=== PATIENT | male | born 1990 | race Caucasian/White ===

== ENCOUNTER 2024-11-04 08:17 | Emergency (ER) | payer OTHER, SELFPAY ==
[2024-11-04 08:49] VITALS: BP 109/76; PULSE 125; RESP 18; TEMP 36.6; O2SAT 95; BMI 19.1
--- NOTE | 2024-11-04 08:55 | ED.GENADULT ---
HPI - General Adult General Date Seen: 11/04/24 Chief complaint: Skin/Abscess/Foreign Body Stated complaint: swelling right knee, nausea Time Seen by Provider: 11/04/24 08:55 History of Present Illness HPI narrative: 34-year-old male presents to the ER today with an open sore and swelling on his right knee. He is generally healthy. No history of diabetes or immunosuppression. He does not have any known history of MRSA infections. He is here because he has a red swollen area on the medial aspect of his right knee/medial distal thigh. He noticed a small open sore, in that area. He does have a few other sores including 1 on his right lateral thigh and a couple on his chin. These do come and go from time to time but never get very inflamed. However beginning about 36 hours ago it began to be uncomfortable. He 1st noted this comfort when he was in bed and his girlfriend accidentally bumped against the side of his knee. Since then he has noted increasing discomfort in spreading redness. He is not having any fever or chills. No trouble bending or straightening his knee. He is not having any swelling in the knee joint itself but swelling on the medial side of the knee. No other red areas. Related Data Home Medications ?Medication ?Instructions ?Recorded ?Confirmed No Known Home Medications 11/04/24 11/04/24 Allergies Allergy/AdvReac Type Severity Reaction Status Date / Time codeine Allergy Severe Anaphylaxis Verified 11/04/24 08:48 Penicillins AdvReac Severe Anaphylaxis Verified 11/04/24 08:48 [facility] Social History Smoking Status: Current every day smoker What tobacco products do you use: cigarettes Do you use any of these nicotine containing products: None Second hand tobacco smoke exposure: Yes How often do you have a drink containing alcohol: 4 or more times a week How many standard drinks containing alcohol do you have on a typical day: 5 or 6 How often do you have six or more drinks on one occasion: Weekly AUDIT-C Alcohol total score: 9 Non-prescribed substance use: denies use Exam Narrative: Exam Narrative: Constitutional: Appears well-developed and well-nourished. Alert. Conversant. Non toxic. HENT: Head: Atraumatic. Nose: Nose normal. Mouth/Throat: Oral mucosa is clear and moist. no trismus Eyes: Conjunctivae normal. EOM normal. Pupils equal, round, and reactive to light. No scleral icterus. Neck: Normal range of motion. Neck supple. No tracheal deviation present. Cardiovascular: Normal rate, regular rhythm. No gallop. No friction rub. No murmur heard. Symmetric radial artery pulses Pulmonary/Chest: Effort normal. No stridor. No respiratory distress. No wheezes. No rales. No rhonchi . No tenderness. Musculoskeletal: RUE: Normal range of motion. No tenderness. No deformity LUE: Normal range of motion. No tenderness. No deformity RLE: Normal range of motion. No edema. No tenderness. No deformity LLE: Normal range of motion. No edema. No tenderness. No deformity Lymph: No ascending lymphangitis adenopathy. Neurological: Alert and oriented to person, place, and time. Normal strength. CN II-VII intact. No sensory deficit. GCS eye subscore is 4. GCS verbal subscore is 5. GCS motor subscore is 6. Normal coordination Skin: There are a couple of scabbed lesions on the patient's right thigh. One is lateral and 1 is medial. Surrounding the medial scapular lesion there is a irregularly shaped area of erythema that is probably about 12 x 6 cm in size. The erythema is warm. It is slightly indurated and firm. There is no palpable fluctuance. No crepitus or gas in the soft tissue. There is not any palpable joint effusion. Normal range of motion in the knee joint. No other reddened skin lesions. Skin is warm and dry. No rash noted. No pallor. Normal capillary refill. Psychiatric: Normal mood. Very polite but anxious and worried. He is concerned that he might have a black spider bite. Const: Vital Signs, click to edit/add: Vital Signs - 24 hr 11/04/24 08:49 Temperature 97.9 F Pulse Rate [Pulse Oximeter] 125 H Respiratory Rate 18 Blood Pressure [Ri ght Upper Arm] 109/76 Pulse Oximetry 95 Oxygen Delivery Me thod Room Air Course Vital Signs Vital signs: Initial Vital Signs Temperature 97.9 F 11/04/24 08:49 Temperature Source Temporal Artery Scan 11/04/24 08:49 Pulse Rate 125 H 11/04/24 08:49 Respiratory Rate 18 11/04/24 08:49 Blood Pressure 109/76 11/04/24 08:49 Blood Pressure Mean 87 11/04/24 08:49 Pulse Oximetry 95 11/04/24 08:49 Oxygen Delivery Method Room Air 11/04/24 08:49 Vital Signs Temperature 97.9 F 11/04/24 08:49 Pulse Rate 125 H 11/04/24 08:49 Respiratory Rate 18 11/04/24 08:49 Blood Pressure 109/76 11/04/24 08:49 Pulse Oximetry 95 11/04/24 08:49 Oxygen Delivery Method Room Air 11/04/24 08:49 Temperature 97.9 F 11/04/24 08:49 Pulse Rate 125 H 11/04/24 08:49 Respiratory Rate 18 11/04/24 08:49 Blood Pressure 109/76 11/04/24 08:49 Pulse Oximetry 95 11/04/24 08:49 Oxygen Delivery Method Room Air 11/04/24 08:49 Medical Decision Making MDM Narrative Medical decision making narrative: This patient presents for evaluation of skin redness and warmth with this comfort affecting the skin of his right medial knee/distal 5. The history, physical exam is consistent with cellulitis. There do not appear at this time to be any complication of cellulitis including abscess, necrotizing fascitis, lymphangitis, lymphadenitis, osteomyelitis, sepsis, or shock. Although his triage she complained noted knee swelling, the swelling is not actually his knee but rather the skin on the medial aspect of his knee. At this point there is no evidence for any prepatellar bursitis, septic arthritis, gouty arthritis in the knee. I do not think he needs any x-rays, arthrocentesis or further evaluation unless the nickel circumstances change. The patient is not immunosuppressed or diabetic. Supportive outpatient management is indicated with antibiotics. Difficult to discriminate between typical skin kisha causing cellulitis or MRSA. Given that he does have other scabs skin lesions, I suspect he may be colonized with MRSA. Will double cover with cephalexin and Bactrim. The patient is instructed to follow-up with primary care physician to ensure no progression and rapid resolution and given precautions to return if high fever, spread greater than 2-3 cm outside of the marked area, worsening pain, vomiting or any other worsening. Questions answered and return precautions reviewed. Discharge Plan Discharge Clinical Impression: Cellulitis Patient Disposition: Home, Self-Care Condition: Stable Instructions: Cellulitis (ED) Additional Instructions: As we discussed, we suspect that the red swollen area on the skin of your right medial knee and thigh is a skin infection. I suspect that this is probably caused by the bacteria MRSA, but we cannot tell that for sure. We are going to put you on 2 antibiotics. One of them, call Bactrim will cover for MRSA. The other 1, called cephalexin, will cover for other skin bacteria. Please monitor the red area carefully. It may continue to get bigger for the next 12-24 hours but should not get dramatically bigger (more than injure to increase in size). If the red area does have significant increase in size, or if you have worsening pain, high fever, worsening swelling, please return to the ER right away to be rechecked. If the red area is not dramatically improved within 72 hours, please come back to the ER (or see your doctor) for a recheck. It is okay to use Tylenol or ibuprofen if needed for pain. Try to rest. Light activity in walking is okay, but avoid strenuous running, or activities like crawling around on your hands or knees. Even if he get better, please recheck with your regular doctor within 1-2 weeks. Prescriptions: No Action No Known Home Medications Stand Alone Forms: Work/School Release, [facility] Info Instructions
== END 2024-11-04 09:49 | disposition home or self-care (01) ==
PROVIDERS: Emergency Provider Emergency Medicine
DX: L03.115 Cellulitis of right lower limb (principal)
CPT/HCPCS: 99282; 99283

== ENCOUNTER 2025-01-28 07:48 | Emergency (ER) | payer OTHER, SELFPAY ==
[2025-01-28 07:51] VITALS: BP 126/62; PULSE 107; RESP 22; TEMP 36.7; O2SAT 98; BMI 20.1
--- NOTE | 2025-01-28 08:16 | ED.GENADULT ---
HPI - General Adult General Date Seen: 01/28/25 Chief complaint: Fall/Minor Trauma Stated complaint: slipped/fell - injured back and head Time Seen by Provider: 01/28/25 08:03 History of Present Illness HPI narrative: Patient is a 34-year-old male here with his girlfriend after a fall at work this morning. He slipped on icy pavement and fell backward, striking his head and injuring his low back. He notes pain with any movement in his low back both in the midline and on both sides. He did not have loss of consciousness. He has a sore spot where he hit his head but otherwise does not have a headache. Denies neck pain. Mostly is concerned with his low back. No radiating pain or weakness or numbness. Past medical history reviewed he denies any medical problems although he does smoke cigarettes and drinks daily. Denies other substances. Related Data Home Medications ?Medication ?Instructions ?Recorded ?Confirmed No Known Home Medications 11/04/24 11/04/24 Allergies Allergy/AdvReac Type Severity Reaction Status Date / Time codeine Allergy Severe Anaphylaxis Verified 11/04/24 08:48 Penicillins AdvReac Severe Anaphylaxis Verified 11/04/24 08:48 Review of Systems Status of ROS: Reports: 6 or more systems reviewed and unremarkable except as noted in History and below [facility] Social History Smoking Status: Current every day smoker What tobacco products do you use: cigarettes Do you use any of these nicotine containing products: None Second hand tobacco smoke exposure: Yes How often do you have a drink containing alcohol: 4 or more times a week How many standard drinks containing alcohol do you have on a typical day: 5 or 6 How often do you have six or more drinks on one occasion: Weekly AUDIT-C Alcohol total score: 9 Non-prescribed substance use: denies use Exam Narrative: Exam Narrative: Vital signs reviewed In general, an alert, nontoxic young man. Smells strongly of cigarette smoke. Head: Normocephalic, atraumatic. No hematoma or abrasion noted. Eyes: Sclera clear. Pupils equal and reactive. ENT: Mucous membranes moist. Neck: Supple without adenopathy. Nontender to palpation. Heart: Regular rate and rhythm without murmur. Lungs: Clear. No increased work of breathing, crackles or wheezes. Back: Diffuse lumbar tenderness including in the midline, no visible trauma. Neurologic: Alert, conversant. Speech fluent, face symmetric. Moves all extremities equally. Skin: Warm, dry well perfused. Affect: Normal. Const: Vital Signs, click to edit/add: Vital Signs - 24 hr 01/28/25 07:51 Temperature 98.1 F Pulse Rate [Pulse Oximeter] 107 H Respiratory Rate 22 Blood Pressure [Ri ght Upper Arm] 126/62 Pulse Oximetry 98 Oxygen Delivery Me thod Room Air Course Course ED Course: Patient presents after fall on the ice from a standing position. He is not anticoagulated. Minor head injury without concerning findings, no indication for imaging. With regard to his back, he complains of midline pain and tenderness, will obtain x-rays to rule out fracture, otherwise symptoms likely muscular in nature. Toradol given here. X-rays of the lumbar spine are reviewed by myself, negative for fracture or other acute appearing abnormality. Read as negative by Radiology. Will discharge home with a note for work to be off for couple of days, Toradol, cyclobenzaprine, ice and/or heat. Primary care follow-up if not improving over the next 7-10 days. Diagnosis: Closed head injury. Low back pain. Fall. Vital Signs Vital signs: Initial Vital Signs Temperature 98.1 F 01/28/25 07:51 Temperature Source Temporal Artery Scan 01/28/25 07:51 Pulse Rate 107 H 01/28/25 07:51 Respiratory Rate 22 01/28/25 07:51 Blood Pressure 126/62 01/28/25 07:51 Blood Pressure Mean 83 01/28/25 07:51 Blood Pressure Position Sitting 01/28/25 07:51 Pulse Oximetry 98 01/28/25 07:51 Oxygen Delivery Method Room Air 01/28/25 07:51 Vital Signs Temperature 98.1 F 01/28/25 07:51 Pulse Rate 107 H 01/28/25 07:51 Respiratory Rate 22 01/28/25 07:51 Blood Pressure 126/62 01/28/25 07:51 Pulse Oximetry 98 01/28/25 07:51 Oxygen Delivery Method Room Air 01/28/25 07:51 Temperature 98.1 F 01/28/25 07:51 Pulse Rate 107 H 01/28/25 07:51 Respiratory Rate 22 01/28/25 07:51 Blood Pressure 126/62 01/28/25 07:51 Pulse Oximetry 98 01/28/25 07:51 Oxygen Delivery Method Room Air 01/28/25 07:51 Medications Administered Medications: Discontinued Medications Generic Name Dose Route Start Last Admin Trade Name Sandy PRN Reason Stop Dose Admin Ketorolac Tromethamine 30 mg 01/28/25 08:14 01/28/25 08:27 Ketorolac 30 Mg/Ml Inj IM 01/28/25 08:15 Not Given ONCE ONE Ketorolac Tromethamine 10 mg 01/28/25 08:24 01/28/25 08:35 Ketorolac 10 Mg Tablet PO 01/28/25 08:25 10 mg ONCE ONE Administration Medical Decision Making Imaging Data Lumbar x-ray: Attestation: I have reviewed the pertinent imaging results. Radiologist's impression: Patient: Adelfo Velasquez MR#: [id number] : 1990 Acct:[id number] Loc: ED Service Date: 01/28/[address]: Ordering Physician: Lizeth Ramsey M.D. Date of Service: 01/28/25 Procedure(s): XR lumbar spine 2-3V Accession Number(s): [id number] cc: Lizeth Ramsey M.D.; Provider,Not a Local~ For Patients: As a result of the Cures Act, medical imaging exams and procedure reports are released immediately into your electronic medical record. You may view this report before your referring provider. If you have questions, please contact your health care provider. INDICATION: Fall. Back pain. Slipped. TECHNIQUE: Lumbar spine three views. COMPARISON: None. FINDINGS: No acute fracture or malalignment. No other osseous abnormality. Paraspinal soft tissues as imaged are unremarkable. IMPRESSION: No acute osseous abnormality. Dictated by Gene Solomon MD @ 01/28/2025 9:12:05 AM Discharge Plan Discharge Clinical Impression: Low back pain Patient Disposition: Home, Self-Care Condition: Stable Instructions: Acute Low Back Pain (ED) Additional Instructions: Your x-rays today appear normal, there is no evidence of injury to the bones. Your pain is likely related to muscle spasm, and may feel worse tomorrow than it does today. It should gradually improve over the next week or so. If not, see your primary doctor. You can use ice and/or heat as needed. I prescribed 2 medications, Toradol, which is an anti-inflammatory, and cyclobenzaprine which is a muscle relaxer. Use as needed. Do not combine with alcohol. Prescriptions: No Action No Known Home Medications Follow Up/Referrals: Provider,Not a Local [Primary Care Provider, Family Practice] Stand Alone Forms: [place] [employer] Info Instructions
[2025-01-28] MEDS: KETOROLAC 10 MG TABLET PO (08:35)
--- NOTE | 2025-01-28 08:45 | CRLHL7_ITS ---
For Patients: As a result of the Cures Act, medical imaging exams and procedure reports are released immediately into your electronic medical record. You may view this report before your referring provider. If you have questions, please contact your health care provider. INDICATION: Fall. Back pain. Slipped. TECHNIQUE: Lumbar spine three views. COMPARISON: None. FINDINGS: No acute fracture or malalignment. No other osseous abnormality. Paraspinal soft tissues as imaged are unremarkable. IMPRESSION: No acute osseous abnormality. Dictated by Gene Solomon MD @ 01/28/2025 9:12:05 AM (Electronically Signed)
== END 2025-01-28 09:50 | disposition home or self-care (01) ==
PROVIDERS: Emergency Provider Emergency Medicine
DX: M54.50 Low back pain, unspecified (principal); W00.0XXA Fall on same level due to ice and snow, initial encounter
CPT/HCPCS: 72100; 96372; 99283; 99284; A9270